=== PATIENT | female | born 1945 | race Caucasian/White ===

== ENCOUNTER → 2017-06-06 | Outpatient (CLI) | payer OTHER ==
[~2017-06-06] VITALS: Ht 170.2 cm; Wt 81.2 kg
[~2017-06-06] MED LIST: ASPIRIN EC81 M1 PO; ATORVASTATIN CA40 MG PO; CALCIUM 500 +1 EAC5 PO; FISH OIL 1,001000 M2 PO; GLUCOSAMINE HC500 MG PO; LIPITOR20 MG PO; LUTEIN20 M1 PO; VITAMIN D1000 UNI1 PO; VITAMIN E400 UNIT PO
--- NOTE | ~2017-06-06 | P ---
[facility] [place] [address] PROCEDURE REPORT Name: JESSICA NORWOOD Room #: REG [facility]#: [id number] Admission: 06/06/17 Attend Phys: Ricky Mantilla Discharge: Date of : 43 Report #: [id number] THIS REPORT FOR: //name// CC: Ricky Bateman DO DATE OF SERVICE: 06/06/2017 PROCEDURE PERFORMED: Colonoscopy with polypectomies. HISTORY OF PRESENT ILLNESS: The patient is a 71-year-old female with a history of polyps, last colonoscopy 5 years ago. She is here for a 5-year followup. She denies any symptoms. She has a family history of colon cancer in her mother. DESCRIPTION OF PROCEDURE: The risks and benefits of the procedure were explained to the patient, those risks including but not limited to bleeding, perforation, the risk of sedation. She understood these risks and gave informed consent. Sedation was given using propofol per Anesthesia. Next, a digital rectal exam was initially performed, which was normal. Next, using a standard Fujinon colonoscope, the scope was placed in the patient's anus and advanced under direct vision to the cecum. The overall prep was excellent. The cecum and ileocecal valve were normal in appearance. In the ascending colon, there were 2 polyps, one was 3 mm in size and removed by cold forceps, the larger was 5 mm in size and removed by snare cautery, otherwise normal. Transverse and descending colon were normal. In the sigmoid colon, a 5 mm sessile polyp also removed by snare cautery. Rectal mucosa was normal. On retroflexion, no abnormalities were noted. The scope was then withdrawn and the procedure terminated. The patient tolerated the procedure well. IMPRESSION: 1. Three small colonic polyps. 2. Otherwise, normal colonoscopy. RECOMMENDATIONS: 1. Await biopsy results. 2. Repeat colonoscopy in 5 years. Thank you for allowing me to participate in her care. <ELECTRONICALLY SIGNED> By: Ricky Tate MD 06/09/17 0907 0906 0921 Ricky Tate MD /nt
--- NOTE | ~2017-06-06 | S ---
[facility] [place] [address] SURGICAL PATH RPT PROCEDURE Name: DULCE MARIA NORWOOD Room #: REG [facility]#: [id number] Admission: 06/06/17 Date of : 43 Discharge: Report #: [id number] Path Case #: [id number] PATHOLOGY REPORT COLLECTION DATE: 06/06/2017 RECEIVED DATE: 06/06/2017 SUBMITTING PHYS: Dr. Ricky Tate OTHER PHYS: Dr. Anup Reece SPECIMEN(S) RECEIVED: A.Polyp at ascending colon B.Polyp at sigmoid colon * * * * * * * * * * * * FINAL DIAGNOSIS: A. Polyp, at ascending colon, endoscopic biopsy: - Sessile serrated polyp. - Negative for dysplasia or malignancy. B. Polyp, at sigmoid, endoscopic biopsy: - Hyperplastic polyp. - Negative for dysplasia. (IUV:mml; 06/09/2017) PATHOLOGIST: Ansley Andrews M.D. REPORT ELECTRONICALLY SIGNED BY: Ansley Andrews M.D. DATE/TIME: 06/09/2017 14:49 * * * * * * * * * * * * GROSS PATHOLOGY: A. Received in formalin labeled "Dulce Maria Norwood, biopsy of polyp at ascending colon" and consists of 2 muhammad polypoid tissue fragment, 0.3 and 0.7 cm. The larger is bisected. The specimen is totally submitted as A1. B. Received in formalin labeled "Dulce Maria Norwood, polyp at sigmoid" and consists of a 0.4 cm, red, polypoid tissue fragment which is entirely submitted as B1. (HARSH; 06/06/2017) CLINICAL HISTORY: History of polyps, family history of colon cancer INITIAL CPT CODE(S): A; 63931 B; 27345 Professional services performed by [facility] at [address] [address] SURGICAL PATH RPT PROCEDURE Name: NORWOODDULCE MARIA SMILEY Room #: REG CLI [facility].#: [id number] Admission: 06/06/17 Date of : 43 Discharge: Report #: [id number] Path Case #: [id number], [place] [address] Technical services performed by [facility] at [address] [place] [address], [facility] [address] [address]. [place] [address] PHONE: [phone] DIRECTOR: Edwin Dickson M.D. * * * END OF REPORT * * *
== END | disposition home or self-care (01) ==
LOC: GI 07:46
DX: Z09 Encounter for follow-up examination after completed treatment for conditions other than malignant neoplasm (principal); Z86.010 Personal history of colon polyps; K63.5 Polyp of colon; E78.00 Pure hypercholesterolemia, unspecified; F17.210 Nicotine dependence, cigarettes, uncomplicated; M85.80 Other specified disorders of bone density and structure, unspecified site; Z98.890 Other specified postprocedural states; Z80.0 Family history of malignant neoplasm of digestive organs; Z79.82 Long term (current) use of aspirin; Z79.899 Other long term (current) drug therapy
CPT/HCPCS: 62110; 62900

== ENCOUNTER → 2019-11-04 | Outpatient (CLI) | payer OTHER | LOC: SJCVCIMAG 15:20 | PROVIDERS: ATTEND Internal Medicine Cardiovascular Disease | DX: I08.2 Rheumatic disorders of both aortic and tricuspid valves (principal); R94.31 Abnormal electrocardiogram [ECG] [EKG]; E78.00 Pure hypercholesterolemia, unspecified; Z79.899 Other long term (current) drug therapy; Z87.891 Personal history of nicotine dependence; Z82.49 Family history of ischemic heart disease and other diseases of the circulatory system ==

== ENCOUNTER 2019-11-08 07:39 | Inpatient (IN) | payer OTHER ==
[2019-11-08] VITALS (7 sets, daily range): BP systolic 95–122; BP diastolic 47–64
[~2019-11-08] VITALS: Ht 170.2 cm; Wt 85.7 kg
[2019-11-08 08:53] LABS: HEMATOCRIT 43.3 % (37.0-47.0); HEMOGLOBIN 13.9 gm/dL (12.0-15.0); MCH 28.2 pg (26.0-34.0); MCHC 32.2 g/dL (28.0-37.0); MCV 87.7 fL (80.0-100.0); RBC 4.94 mil/uL (4.20-5.00); RDW 15.4 % (10.5-14.5); WBC 5.2 thou/uL (4.0-11.0)
[2019-11-08 09:03] LABS: CALCIUM 8.8 mg/dL (8.5-10.1); CREATININE 0.9 mg/dL (0.6-1.0); POTASSIUM 4.2 mmol/L (3.5-5.1)
--- NOTE | 2019-11-08 10:48 | EKG ---
[facility] [place] [address] ELECTROCARDIOGRAM REPORT Name: JESSICA NORWOOD Room #: REG [facility].#: [id number] Admission: 11/08/19 Attend Phys: Laci Stoddard MD, Discharge: Date of : 43 Report #: [id number] THIS REPORT FOR: cc: Anup Reece,Kashif Springer MD ~ THIS REPORT FOR: //name// [facility] Test Date: 2019-11-08 Test Time: 08:44:41 Pat Name: JESSICA NORWOOD Department: Room: Gender: F Last Remodeler Repairer: [facility] : 1945 Requested By: Laci Stoddard Order Number: [id number] MD: Kashif Sesay Measurements Intervals [place] Rate: 53 P: 2 MD: 177 QRS: -14 QRSD: 94 T: 9 QT: 455 QTc: 428 Interpretive Statements Sinus rhythm Borderline T abnormalities, anterior leads No previous ECG available for comparison Electronically Signed On 11-08-2019 10:48:20 CDT by Kashif Sesay [email or web address] <ELECTRONICALLY SIGNED> By: Kashif Sesay MD 11/08/19 1048 0844 0844 Kashif Sesay MD /EPI
[2019-11-08 15:54] LABS: ABSOLUTE NEUTROPHILS 3.4 thou/uL (1.4-8.2); BASOPHILS 0.4 % (0.0-2.0); EOSINOPHILS 1.2 % (0.0-3.0); HEMATOCRIT 41.6 % (37.0-47.0); HEMOGLOBIN 13.3 gm/dL (12.0-15.0); LYMPHOCYTES 26.9 % (24.0-44.0); MCH 28.1 pg (26.0-34.0); MCHC 31.9 g/dL (28.0-37.0); MONOCYTES 8.4 % (1.0-8.0); PLATELET COUNT 192 thou/uL (150-400); POLYS 63.1 % (36.0-66.0); RBC 4.74 mil/uL (4.20-5.00); RDW 15.5 % (10.5-14.5); WBC 5.4 thou/uL (4.0-11.0)
[2019-11-08 16:02] LABS: CALCIUM 8.2 mg/dL (8.5-10.1); CREATININE 0.8 mg/dL (0.6-1.0); POTASSIUM 4.1 mmol/L (3.5-5.1)
[2019-11-08 16:08] LABS: ALBUMIN 3.2 g/dL (3.4-5.0); TOTAL BILIRUBIN 0.5 mg/dL (0.2-1.0); TOTAL PROTEIN 6.1 g/dL (6.4-8.2)
[2019-11-08 16:10] LABS: APTT 29.4 Seconds (24.5-32.8); PROTIME 10.7 Seconds (9.3-11.4)
[2019-11-08 17:02] LABS: URINE BILIRUBIN NEGATIVE (Negative); URINE BLOOD NEGATIVE (Negative); URINE CLARITY CLEAR; URINE COLOR YELLOW; URINE GLUCOSE-RANDOM* NEGATIVE (Negative); URINE KETONES NEGATIVE (Negative); URINE LEUKOCYTES-REFLEX NEGATIVE (Negative); URINE NITRITE-REFLEX NEGATIVE (Negative); URINE PROTEIN (DIPSTICK) NEGATIVE (Negative)
--- NOTE | 2019-11-08 17:40 | NUR ---
PT ADMITED FROM MORTGAGE CLERK. ADMISSION HX AND ASSESSMENT COMPLETED. VSS. DENIED HAVING PAIN OR DISCOMFORT. RIGHT GROIN INCISION C/D/I. NO HEMATOMA NOTED. NPO AFTER MIDNIGHT FOR CABG IN AM. PRE OP INSTRUCTIONS GIVEN TO PT. PT VERBERLISED UNDERSTANDING. NO CARDIAC DISTRESS NOTED. WILL CONTINUE TO MONITOR.
--- NOTE | 2019-11-08 17:42 | CATHLAB ---
[facility] [place] [address] INVASIVE PROCEDURE REPORT Name: JESSICA NORWOOD Room #: 201-P [facility] M.R.#: [id number] Admission: 11/08/19 Attend Phys: Laci Stoddard MD, Discharge: Date of : 44 Report #: [id number] THIS REPORT FOR: cc: Anup Reece James A. DO Mancuso, Gerald M. MD [facility] ~ APPROVED REPORT Study performed: 11/08/2019 10:44:29 Patient Details Patient Status: Out-Patient Room #: The patient is a 74 year-old female Event Personnel Laci Stoddard Branding Specialist, Pankaj Anguiano RN RN, Teresita Acevedo RTR Monitor, Leela López RT(R)() Glen Hintno Tony RN powerhouse operator Performed Art Access - R femoral artery* Left Heart Cath w/or w/o Coronaries [id number] [facility] Hemostasis w/ Mynx 75664 Initial Mod Sed Same Phys/QHP Gr5y 062445 90914 Mod Sed Same Phys/QHP Ea 687143 Aortogram Abdominal Peripheral Angio 416004 Procedure Narrative The Right Groin^ was infiltrated with 1% Lidocaine subcutaneous anesthesia. A PINNACLE 6FR Sheath #[id number] sheath was inserted into the RFA^. Coronary angiography was performed using coronary diagnostic catheters. The right coronary system was accessed and visualized with a JR4 catheter. The left coronary system was accessed and visualized with a JL4 catheter. The left ventricle was accessed and visualized with a PIGTAIL catheter. Left ventriculogram was performed in 30 degree projection. An aortogram of the abdominal aorta was performed. Closure device was deployed with a Fr 6 FR MYNX. The patient tolerated the procedure well and there were no complications associated with the procedure. There was no hematoma. Intraoperative Conscious Sedation Sedation start time: 11:55 Case end Time: 12:31 Fentanyl 50 mcg Versed 2 mg [facility] [address] [place] [address] INVASIVE PROCEDURE REPORT Name: JESSICA NORWOOD Room #: 201-P [facility]#: [id number] Admission: 11/08/19 Attend Phys: Laci Stoddard, Discharge: Date of : 43 Report #: [id number] Fluoro Time: 1.26 minutes Dose: DAP 3312.60 cGycm2 401 mGy Contrast Type and Amount: Omnipaque 135 ml Hemodynamics The aortic pressure is 115/96 mmHg with a mean of 105 mmHg. The left ventricular pressure is 130/12 mmHg with a mean of mmHg. The left ventricular end diastolic pressure is 15 mmHg. Conclusion 1. Normal left ventricular size and systolic function EF 55 to 60% #2 abdominal aorta reveals mild plaquing small infrarenal aneurysm will evaluate noninvasively. Mildly dilated right common iliac no high-grade stenosis or significant aneurysm. #3 there is an ostial left main lesion of 30 to 40% and a distal tapered left main of 50% giving rise to LAD and circumflex. #4 LAD proximal calcification complex proximal mid lesion at the diagonal takeoff at least 70% well-preserved distal vessel around the apex. #5 circumflex OM nondominant mild to moderate in distribution with a subtotal proximal lesion 99% with preserved flow #6 the dominant right coronary artery high-grade subtotaled area in the proximal mid mid distal segment. 90 to 95% with a preserved distal half of the RCA and PDA LANDON. Recommendations and plan: Aggressive medical therapy. Patient will be admitted with stable but accelerating angina. These lesions and severe nature of all 3 vessels including left main involvement would require revascularization by bypass surgery. Patient is pain-free upon transfer to CCU. CT surgery consultation. <ELECTRONICALLY SIGNED> By: Laci Stoddard MD, FACC 11/08/191741 41 41 Laci Stoddard MD, FACC /INF
[2019-11-09] VITALS (16 sets, daily range): BP systolic 97–128; BP diastolic 36–66
[2019-11-09 02:06] LABS: GLYCOHEMOGLOBIN (HGB A1C) 5.8 % (4.8-5.6)
--- NOTE | 2019-11-09 08:13 | NUR ---
ASSUME CARE 1900. PT/VITALS STABLE. NO DISTRESS NOTED. DENIES ANYT CHEST PAIN. UP AD JUNE. SR ON MONITOR. ASSESSMENT CHARTED. PLAN IS CABG IN AM. PREP FOR SURGERY TODAY. PT COMPLYING WELL. WILL CONTINUE TO MONITOR AND FOLLOW WITH POC
[2019-11-09 12:32] LABS: HEMATOCRIT 29.1 % (37.0-47.0); MCH 28.8 pg (26.0-34.0); MCHC 32.8 g/dL (28.0-37.0); MCV 87.7 fL (80.0-100.0); RBC 3.31 mil/uL (4.20-5.00); RDW 15.3 % (10.5-14.5); WBC 10.3 thou/uL (4.0-11.0)
[2019-11-09 12:35] LABS: HEMOGLOBIN 9.5 gm/dL (12.0-15.0)
[2019-11-09 12:52] LABS: APTT 31.6 Seconds (24.5-32.8); PROTIME 16.7 Seconds (9.3-11.4)
[2019-11-09 12:54] LABS: INR 1.7
[2019-11-09 13:51] LABS: POC BE 2 mmol/L (-2.0 to +3.0); POC CA IONIZED 4.2 mg/dL (4.5-5.3); POC GLUCOSE 137 mg/dL (70-99); POC HCO3 26.2 mmol/L (22.0-26.0); POC HEMOGLOBIN 9.9 g/dL (12.0-15.0); POC SODIUM 137 mmol/L (136-145); POC pCO2 37.5 mmHg (35.0-45.0); POC pH 7.452 (7.360-7.450)
[2019-11-09 13:51] LABS: POC BE 3 mmol/L (-2.0 to +3.0); POC CA IONIZED 4.9 mg/dL (4.5-5.3); POC GLUCOSE 98 mg/dL (70-99); POC HCO3 27.1 mmol/L (22.0-26.0); POC HEMOGLOBIN 13.3 g/dL (12.0-15.0); POC POTASSIUM 4.2 mmol/L (3.5-5.1); POC SODIUM 140 mmol/L (136-145); POC pCO2 40.2 mmHg (35.0-45.0); POC pH 7.437 (7.360-7.450)
[2019-11-09 13:51] LABS: POC BE 2 mmol/L (-2.0 to +3.0); POC CA IONIZED 4.5 mg/dL (4.5-5.3); POC GLUCOSE 162 mg/dL (70-99); POC HCO3 26.7 mmol/L (22.0-26.0); POC HEMOGLOBIN 9.9 g/dL (12.0-15.0); POC POTASSIUM 4.7 mmol/L (3.5-5.1); POC SODIUM 138 mmol/L (136-145); POC pCO2 39.9 mmHg (35.0-45.0); POC pH 7.434 (7.360-7.450)
[2019-11-09 13:51] LABS: POC BE 1 mmol/L (-2.0 to +3.0); POC CA IONIZED 4.4 mg/dL (4.5-5.3); POC GLUCOSE 168 mg/dL (70-99); POC HCO3 25.8 mmol/L (22.0-26.0); POC HEMOGLOBIN 9.2 g/dL (12.0-15.0); POC POTASSIUM 4.7 mmol/L (3.5-5.1); POC SODIUM 137 mmol/L (136-145); POC pH 7.406 (7.360-7.450)
[2019-11-09 13:51] LABS: POC BE 2 mmol/L (-2.0 to +3.0); POC CA IONIZED 4.7 mg/dL (4.5-5.3); POC GLUCOSE 125 mg/dL (70-99); POC HCO3 26.7 mmol/L (22.0-26.0); POC HEMOGLOBIN 12.6 g/dL (12.0-15.0); POC POTASSIUM 4.4 mmol/L (3.5-5.1); POC SODIUM 139 mmol/L (136-145); POC pCO2 41.5 mmHg (35.0-45.0); POC pH 7.417 (7.360-7.450)
[2019-11-09 13:51] LABS: POC BE -1 mmol/L (-2.0 to +3.0); POC CA IONIZED 5.6 mg/dL (4.5-5.3); POC GLUCOSE 139 mg/dL (70-99); POC HCO3 23.3 mmol/L (22.0-26.0); POC HEMOGLOBIN 9.2 g/dL (12.0-15.0); POC POTASSIUM 3.9 mmol/L (3.5-5.1); POC SODIUM 140 mmol/L (136-145); POC pCO2 35.3 mmHg (35.0-45.0); POC pH 7.428 (7.360-7.450)
[2019-11-09 13:52] LABS: POC BE -2 mmol/L (-2.0 to +3.0); POC GLUCOSE 118 mg/dL (70-99); POC HCO3 22.2 mmol/L (22.0-26.0); POC HEMOGLOBIN 10.9 g/dL (12.0-15.0); POC POTASSIUM 3.8 mmol/L (3.5-5.1); POC SODIUM 141 mmol/L (136-145); POC pCO2 34.1 mmHg (35.0-45.0); POC pH 7.421 (7.360-7.450)
[2019-11-09 13:52] LABS: POC BE 1 mmol/L (-2.0 to +3.0); POC CA IONIZED 4.4 mg/dL (4.5-5.3); POC GLUCOSE 165 mg/dL (70-99); POC HEMOGLOBIN 9.5 g/dL (12.0-15.0); POC POTASSIUM 4.7 mmol/L (3.5-5.1); POC SODIUM 137 mmol/L (136-145); POC pCO2 42.1 mmHg (35.0-45.0); POC pH 7.399 (7.360-7.450)
--- NOTE | 2019-11-09 14:00 | NUR ---
PT RECIEVED FROM SURGERY ACC BY aNES AND OR NURSES. DR Cortes HERE. PT IS ONLY ON PROPOFOL, ALL HEMODYNAMIC PARAMETERS WNL. PLACED ON THE MONITOR NSR. ETT INTACT TO VENT. OGT TO LIS. MEDS AND PCT INTACT WITH MINIMAL DRAINAGE. LITTLE FRAINING CLEAR URINE, PLACE ON HEAT SOURCE. WILL CONT TO MONITOR.
[2019-11-09 14:38] LABS: HEMATOCRIT 36.6 % (37.0-47.0); MCH 28.9 pg (26.0-34.0); MCHC 33.1 g/dL (28.0-37.0); MCV 87.4 fL (80.0-100.0); RBC 4.18 mil/uL (4.20-5.00); RDW 15.6 % (10.5-14.5)
[2019-11-09 14:43] LABS: HEMOGLOBIN 12.1 gm/dL (12.0-15.0)
[2019-11-09 14:48] LABS: HCO3 19.1 mmol/L (22.0-26.0); PCO2 29.6 mmHg (35.0-45.0); PO2 136.9 mmHg (80.0-100.0); pH 7.428 (7.360-7.450); sO2 98.8 % (92.0-98.0)
[2019-11-09 14:56] LABS: APTT 27.5 Seconds (24.5-32.8); INR 1.2; PROTIME 11.9 Seconds (9.3-11.4)
[2019-11-09 14:57] LABS: CALCIUM 8.1 mg/dL (8.5-10.1); CREATININE 0.7 mg/dL (0.6-1.0); MAGNESIUM 2.4 mg/dL (1.8-2.4)
--- NOTE | 2019-11-09 15:00 | NUR ---
PROPOFOL OFF, ALL HEMODYNAMIC PARAMETERS LOOK GOOD.
--- NOTE | 2019-11-09 16:00 | NUR ---
ASSESSMENTS COMPLETED. PT HAS BEEN WAKING UP GRADUALLY BUT IS NOT FOLLOWING COMMANDS ENOUGH, I DID HAVE RT HERE TO TRY TO WEAN HER BUT SHE IS JUST TOO SLEEPY, HOB UP 30 DEGREES, ENCOURAGED PT TO OPEN HER EYES AND LOOK AROUND , PROCEDURE FOR THE WEANING PROCESS EXPLAINED SHE NODS YES BUT FALLS ASLEEP. WILL CONT TO MONITOR.
--- NOTE | 2019-11-09 17:00 | NUR ---
CALLED AND WANTED TO SEE HIS FOR A SHORT TIME. HERE AND UPDATE GIVEN.
--- NOTE | 2019-11-09 17:46 | H ---
[facility] [place] [address] HISTORY AND PHYSICAL Name: JESSICA NORWOOD Room #: 251-P ADM IN M.R.#: [id number] Admission: 11/08/19 Attend Phys: Laci Stoddard MD, Discharge: Date of : 43 Report #: [id number] THIS REPORT FOR: cc: Anup Reece,Laci Lazar MD [facility] ~ CC: Laci Reece DATE OF SERVICE: 11/08/2019 HISTORY OF PRESENT ILLNESS: The patient is a 74-year-old female followed by Dr. Reece and Sangeeta Snyder NP. She is admitted for what sounds like accelerating unstable anginal symptoms. She was seen on the in, I believe, this [facility] Emergency Room. She was ruled out and was subsequently scheduled to be seen here in a couple of weeks at [facility]. She was seen last week in the office with an abnormal stress echo. She has had some acceleration of her symptoms over the weekend despite Bystolic in addition of a beta crystal, she has been on a statin. Marked decrease in exercise tolerance. Subsequently, catheterization lab reveals left main of at least 50%, both ostial and distally, a subtotal circumflex and a moderate disease in the proximal LAD diagonal system, which is heavily calcified ,dominant right which has a long complex lesions of 90 and 95% and calcification with also good preserved distal vessel. She is pain free in the cath lab radiology technician, but these are subtotal lesions in the right and the circumflex, going to admit her for CT surgical consultation. CURRENT MEDICATIONS: Have been recently added; Bystolic, atorvastatin 40; baby aspirin and Pepcid. PAST MEDICAL HISTORY: Positive for the elevated lipids, hypertension, coronary calcium score elevated, reflux, DJD. PAST SURGICAL HISTORY: Tonsillectomy. SOCIAL HISTORY: She is . She was a prior smoker. No alcohol use. No illicit drug use. Two cups of coffee a day. REVIEW OF SYSTEMS: Essentially negative except for stated above, increasing fatigue. ALLERGIES: No known drug allergies. FAMILY HISTORY: Both father and brother had heart attack in their early 60s. PHYSICAL EXAMINATION: GENERAL: She is pleasant, alert. [facility] [address] [place] [address] HISTORY AND PHYSICAL Name: JESSICA NORWOOD Room #: 251-P [facility] IN M.R.#: [id number] Admission: 11/08/19 Attend Phys: Laci Stoddard MD, Discharge: Date of : 43 Report #: [id number] VITAL SIGNS: Pulse is 60s, blood pressure 136/80. HEENT: Eyes reveal xanthelasmas. Pharynx is clear. NECK: Shows preserved upstrokes without JVD or bruits. LUNGS: Clear. CARDIOVASCULAR: Regular rate and rhythm, S1, S2 distant. ABDOMEN: Soft. No HSM or abdominal bruit. EXTREMITIES: Reveal no edema. Distal pulses were intact. NEUROLOGIC: Nonfocal. SKIN: Warm and dry without xanthoma or ulcer. MUSCULOSKELETAL: No gross joint deformity. ASSESSMENT: 1. Coronary artery disease with high grade 3-vessel disease as described above with accelerating angina. 2. Hypertension. 3. Hypercholesterolemia. 4. Reflux. RECOMMENDATIONS AND PLAN: We will obtain MRSA and COVID swabs, carotid Doppler, CV surgical consultation. We would like to proceed for revascularization by bypass in the a.m. No recurrent chest pain at rest here. We will avoid anticoagulants currently. Risks, benefits, alternatives discussed with the patient and her . Dr. Pete will also be having a further discussion regarding bypass with them. <ELECTRONICALLY SIGNED> By: Laci Stoddard MD, FACC 11/09/19 1746 1227 1256 Laci Stoddard MD, FACC /nt
--- NOTE | 2019-11-09 18:00 | NUR ---
REPORT GIVEN TO ONCOMING RN, WE HAVE TRIED TO WEAN THE PATIENT X3 AND SHE HAS NOT FIT THE PARAMETERS TO EXTUBATE. WILL CONT TO MONITOR. WILL TRY SOME PAIN MEDICATION.
[2019-11-09 18:28] LABS: CALCIUM 8.2 mg/dL (8.5-10.1); POTASSIUM 3.8 mmol/L (3.5-5.1)
[2019-11-09 20:46] LABS: BE(vivo) -7.1 mmol/L (-2 to +3); HCO3 17.9 mmol/L (22.0-26.0); PCO2 34.9 mmHg (35.0-45.0); PO2 100.8 mmHg (80.0-100.0); sO2 97.3 % (92.0-98.0)
[2019-11-09 20:47] LABS: pH 7.329 (7.360-7.450)
[2019-11-09 22:12] LABS: BE(vivo) -8.5 mmol/L (-2 to +3); HCO3 17.4 mmol/L (22.0-26.0); PCO2 37.5 mmHg (35.0-45.0); PO2 118.7 mmHg (80.0-100.0); sO2 97.9 % (92.0-98.0)
[2019-11-09 22:13] LABS: pH 7.285 (7.360-7.450)
[2019-11-10] VITALS (11 sets, daily range): BP systolic 95–123; BP diastolic 46–59
[2019-11-10 05:58] LABS: HEMATOCRIT 37.7 % (37.0-47.0); HEMOGLOBIN 12.1 gm/dL (12.0-15.0); MCH 28.5 pg (26.0-34.0); MCHC 32.1 g/dL (28.0-37.0); MCV 88.8 fL (80.0-100.0); RBC 4.24 mil/uL (4.20-5.00); RDW 15.9 % (10.5-14.5); WBC 12.8 thou/uL (4.0-11.0)
[2019-11-10 06:12] LABS: CALCIUM 8.4 mg/dL (8.5-10.1); CREATININE 1.2 mg/dL (0.6-1.0); MAGNESIUM 2.6 mg/dL (1.8-2.4); POTASSIUM 3.9 mmol/L (3.5-5.1)
--- NOTE | 2019-11-10 07:59 | EKG ---
[facility] [place] [address] ELECTROCARDIOGRAM REPORT Name: JESSICA NORWOOD Room #: 251-P ADM IN M.R.#: [id number] Admission: 11/08/19 Attend Phys: Laci Stoddard MD, Discharge: Date of : 43 Report #: [id number] THIS REPORT FOR: cc: Anup Reece James A. DO Lundgren, Craig H. MD [facility] ~ THIS REPORT FOR: //name// [facility] Test Date: 2019-11-09 Test Time: 16:19:35 Pat Name: JESSICA NORWOOD Department: Room: [facility] Gender: F Keno Writer: Rosalva DUMONT : 1945 Requested By: Pawel Chavez Order Number: [id number] MD: Sb Thakkar Measurements Intervals [place] Rate: 89 P: 42 UT: 157 QRS: 11 QRSD: 91 T: 39 QT: 396 QTc: 482 Interpretive Statements Sinus rhythm Nonspecific ST segment abnormality Compared to ECG 11/08/2019 08:44:41 T-wave abnormality no longer present Electronically Signed On 11-10-2019 7:58:55 CDT by Sb Thakkar [email or web address] <ELECTRONICALLY SIGNED> By: Sb Thakkar MD, FAC 11/10/19 0758 1619 1619 Sb Thakkar MD, FAC /EPI
--- NOTE | 2019-11-10 08:44 | NUR ---
Received consult for diet education however pt is on a regular diet, no restrictions. Available as needed
--- NOTE | 2019-11-10 13:37 | NUR ---
Case opened to follow for dc planning. Pt is currently in the ICU s/p CABG x4 and today is pod#1. She is extubated and has been seen by PT/OT today. Bath Solution Maker visited with the pt and spouse via speaker phone. CM role introduced. The pt was indep, active, working fulltime and driving prior to admission. She lives with her spouse in a two story home with 3 steps to enter. She has a flight up to the master bedroom and full bath. They are planning for her to stay on the main level upon dc home and only go upstairs to shower. There is a half bath on the main level. 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 She does not have any dme. They are open to outpt cardiac rehab or HH pending therapy and CTS recommendations. Will follow along should hh be indicated at dc and a listing will be provided.
--- NOTE | 2019-11-10 13:50 | EKG ---
[facility] [place] [address] ELECTROCARDIOGRAM REPORT Name: JESSICA NORWOOD Room #: 251-P ADM IN M.R.#: [id number] Admission: 11/08/19 Attend Phys: Laci Stoddard MD, Discharge: Date of : 43 Report #: [id number] THIS REPORT FOR: cc: Anup Reece James A. DO Couchonnal, Luis F. MD ~ THIS REPORT FOR: //name// [facility] Test Date: 2019-11-10 Test Time: 07:13:25 Pat Name: JESSICA NORWOOD Department: Room: 251 P Gender: F Repeater Chief: CHEPE : 1945 Requested By: Pawel Chavez Order Number: [id number] MD: Kashif Sesay Measurements Intervals [place] Rate: 84 P: 5 WI: 150 QRS: 18 QRSD: 92 T: -19 QT: 448 QTc: 530 Interpretive Statements Sinus rhythm Borderline T wave abnormalities Compared to ECG 11/09/2019 16:19:35 Electronically Signed On 11-10-2019 13:49:56 CDT by Kashif Sesay [email or web address] <ELECTRONICALLY SIGNED> By: Kashif Sesay MD 11/10/19 1349 2 2 Kashif Sesay MD /EPI
--- NOTE | 2019-11-10 16:00 | NUR ---
MS CHEST TUBES DCD. PACER WIRES WRAPPED.
[2019-11-11 08:14] VITALS: BP 111/50
[2019-11-11 10:30] VITALS: BP 102/51
[2019-11-11 11:02] VITALS: BP 102/51
[2019-11-11 15:39] VITALS: BP 122/58
[2019-11-11 16:10] VITALS: BP 122/58
--- NOTE | 2019-11-11 18:56 | NUR ---
PT CARE ASSUMED AT 1055. ASSESSMENT CHARTED. MEDICATIUON CHARTED. CHEST TUBES REMOVED; PT AT BED REST UNTIL 1600. SIDNEY. CABG X4. PACE WIRES STILL IN PLACE. BETTINA DRESSING ON STERNUM.
[2019-11-11 19:38] VITALS: BP 123/67
[2019-11-12 00:14] VITALS: BP 114/62
[2019-11-12 03:33] VITALS: BP 125/64
--- NOTE | 2019-11-12 04:03 | NUR ---
Assumed pt care at 1900. Pt is alert and oriented. No sign of distress noted in pt. Pt is stable. Fall precaution in place. Assessment completed and documented. Incision site intact. Encourage the use of IS with patient. Scheduled meds administered to pt. Pain tolerable. No acute event overnight.Continue to monitor pt. No further needs at this time.
[2019-11-12 07:30] VITALS: BP 120/80
[2019-11-12] MEDS ORDERED: METOPROLOL SUCC25 M1 PO (07:39)
[2019-11-12] MEDS ORDERED: PACERONE 200 M200 M1 PO (07:39)
[2019-11-12 09:12] LABS: HEMATOCRIT 34.4 % (37.0-47.0); HEMOGLOBIN 11.3 gm/dL (12.0-15.0); MCH 28.7 pg (26.0-34.0); MCHC 32.7 g/dL (28.0-37.0); MCV 87.5 fL (80.0-100.0); RBC 3.93 mil/uL (4.20-5.00); RDW 16.3 % (10.5-14.5)
[2019-11-12 09:31] LABS: CALCIUM 8.5 mg/dL (8.5-10.1); CREATININE 0.7 mg/dL (0.6-1.0); POTASSIUM 4.1 mmol/L (3.5-5.1)
[2019-11-12 11:46] VITALS: BP 97/50
--- NOTE | 2019-11-12 12:41 | O ---
[facility] [place] [address] OPERATIVE REPORT Name: JESSICA NORWOOD Room #: 215-P ADM IN M.R.#: [id number] Admission: 11/08/19 Attend Phys: Laci Stoddard MD, Discharge: Date of : 43 Report #: [id number] THIS REPORT FOR: cc: Anup Reece,Isaac Avery MD ~ CC: Laci Reece DATE OF SERVICE: 11/09/2019 PREOPERATIVE DIAGNOSIS: Coronary artery disease. POSTOPERATIVE DIAGNOSIS: Coronary artery disease. OPERATION: Coronary artery bypass x 4 including left internal mammary artery to left anterior descending artery, saphenous vein to diagonal and marginal and saphenous vein to right coronary and endoscopic harvest, left greater saphenous vein. SURGEON: Isaac Pete MD. COSMETOLOGIST: ANDREINA Juarez. ANESTHESIA: General. INDICATIONS: The patient is a 74-year-old with angina. The patient presents with progressive shortness of breath and exertional chest pain. Cardiac catheterization demonstrates 99% right coronary and 99% circumflex lesions. Left main has a 50% stenosis and LAD has a 70% lesion. Left ventricular function was satisfactory. FINDINGS AND TECHNIQUE: After general anesthesia was established, saphenous vein was harvested using an endoscopic approach and prepared for use as a conduit. Exposure was obtained through median sternotomy. Left internal mammary artery was harvested from chest wall. Pericardial well was made. Cannulation sutures were placed. Heparin was given. Aorta was cannulated. Right atrium was cannulated. Cardioplegia needle was positioned in the aortic root. Retrograde cardioplegic catheter was placed in coronary sinus. Cardiopulmonary bypass was established. The aorta was cross clamped. Antegrade and retrograde cardioplegia were given. Ice was poured into pericardial well. The heart was stopped. During electromechanical arrest, the distal anastomoses were performed and [facility] [address] [place] [address] OPERATIVE REPORT Name: JESSICA NORWOOD Room #: 215-P [facility] IN M.R.#: [id number] Admission: 11/08/19 Attend Phys: Laci Stoddard MD, Discharge: Date of : 43 Report #: [id number] end-to-side anastomosis was made between the vein and the right coronary. Cold cardioplegia was given. A separate segment of vein was sewn in end-to-side fashion to the circumflex marginal. Cold cardioplegia was given. The same segment of vein was sewn in [id number] fashion to the diagonal artery. Diagonal was a 1.2 mm vessel. Cold cardioplegia was given. Left internal mammary artery was sewn in end-to-side fashion to left anterior descending artery. The LAD was intramyocardial and we performed the anastomosis where it emerged from its deep position. It was a relatively small vessel and was quite distal and we used most of the MORRIS. The MORRIS was small at this point, but it was a good match for the LAD. The anastomosis was checked with the temperature technique and also with the Doppler to confirm flow. Cold cardioplegia was given. Two proximal anastomoses were performed. When these were complete, warm retrograde cardioplegia was given followed by warm continuous blood to the coronary sinus. When this infusion was complete, the crossclamp was removed. De-airing maneuvers were performed. The anastomoses were inspected and found to be satisfactory. As the patient warmed, nice cardiac activity resumed. Chest tubes and pacing wires were placed. A marker was placed around the proximal anastomoses. When the patient was warmed, she was weaned from cardiopulmonary bypass. Venous cannula was removed. Protamine was given, the aortic cannula was removed. Flows were measured in the bypass grafts. When hemostasis was satisfactory, chest was irrigated with antibiotic solution and closed in the usual fashion. The patient was taken to the Intensive Care Unit in good condition having tolerated the procedure well. All counts reported as correct. <ELECTRONICALLY SIGNED> By: Isaac Pete MD 11/12/19 1241 1539 1610 Isaac Pete MD /nt
--- NOTE | 2019-11-12 12:41 | HC ---
[facility] [place] [address] CONSULTATION Name: JESSICA NORWOOD Room #: 215-P ADM IN M.R.#: [id number] Admission: 11/08/19 Attend Phys: Laci Stoddard MD, Discharge: Date of : 43 Report #: [id number] THIS REPORT FOR: cc: Anup Reece,Isaac Avery MD ~ CC: Laci Reece DATE OF SERVICE: 11/08/2019 HISTORY OF PRESENT ILLNESS: We were asked by Dr. Stoddard to see the patient. The patient is a 74-year-old with coronary artery disease. The patient presents with a several month history of angina. This has seemed to get worse over time, but it has always been related to exercise. The patient denies rest angina. Patient states that she has chest pain, right arm pain, and shortness of breath with ____ low levels of exertion. Cardiac catheterization today demonstrates 3-vessel coronary artery disease including 50% left main, 70% LAD, 90 plus percent circumflex and 90 plus percent right coronary stenosis. Left ventricular function is satisfactory. PAST HISTORY: Elevated cholesterol. The patient denies such problems as diabetes and hypertension. 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 She has smoked on and off for many years. FAMILY HISTORY: Not pertinent. ALLERGIES: None known. MEDICATIONS AT HOME: Atorvastatin, Pepcid, nitro, aspirin, Bystolic. REVIEW OF SYSTEMS: GENERAL: Denies changes in weight. EYES: No vision changes. ENT: No hearing loss, sinus problems, headache. CARDIAC: As mentioned, exertional angina, class 3, moving to class 2. RESPIRATORY: Shortness of breath with exertion. Denies cough. GASTROINTESTINAL: Has gastroesophageal reflux and claims to burp 30 times a day. No blood. No nausea, vomiting, constipation, diarrhea. GENITOURINARY: No burning, urgency, frequency, blood. MUSCULOSKELETAL: Denies bone and joint pain. SKIN: No rash or infection. NEUROLOGIC: No motor or sensory dysfunction. [facility] [address] [place] [address] CONSULTATION Name: JESSICA NORWOOD SMILEY Room #: 215-P [facility] IN M.R.#: [id number] Admission: 11/08/19 Attend Phys: Laci Stoddard MD, Discharge: Date of : 43 Report #: [id number] HEMATOLOGIC: No bruisability or bleeding. ENDOCRINE: No goiter or tremor. PHYSICAL EXAMINATION: CONSTITUTIONAL: The patient is lying in bed, appears comfortable. VITAL SIGNS: Heart rate 70, blood pressure 109/60, respiratory rate 16. HEENT: No scleral icterus, no arcus. NECK: No mass, no bruit. CHEST: Clear to auscultation. HEART: Rhythm regular, no murmur. ABDOMEN: Soft. EXTREMITIES: No clubbing, cyanosis or edema. Strong dorsalis pedis pulses bilaterally (2+). No obvious saphenous vein problems. MUSCULOSKELETAL: No obvious bone or joint deformity or asymmetry. NEUROLOGIC: No motor or sensory dysfunction, although the patient is in bed post-cath. PSYCHIATRIC: Shows insight into problem and is a pleasant woman. ASSESSMENT: The patient has severe 3-vessel coronary artery disease with less severe left main stenosis in the face of good ventricular function. We have recommended coronary artery bypass surgery. Risks and details of this were discussed. Options and alternatives were reviewed. The patient understands all of this and wishes to proceed. We will try to arrange for surgery for tomorrow. Thank you for the consult. <ELECTRONICALLY SIGNED> By: Isaac Pete MD 11/12/19 1241 1312 [id number] Isaac Pete MD /nt
--- NOTE | 2019-11-12 13:45 | NUR ---
Bedside visit made with pt/spouse. Cardiac rehab just saw the pt and she did well walking in the hallway. Pros and cons of HH discussed especially with Covid Crisis. Will see how she does the next day or two. Spouse is very supportive and pt can stay on the main level. Should she need HH at dc options discussed. [facility] or [facility] can accept her ins plan and they would be agreeable to either. They are hoping she will not need it and they can eliminate virus explosure.
--- NOTE | 2019-11-12 15:27 | NUR ---
PT WITH POOR APPETITE, REQUESTING ENSURE WITH ALL MEALS.
[2019-11-12 16:30] VITALS: BP 105/54
--- NOTE | 2019-11-12 18:30 | NUR ---
PT UP IN CHAIR THIS EVENING.
[2019-11-12 20:15] VITALS: BP 114/50
[2019-11-13 04:00] VITALS: BP 105/61
--- NOTE | 2019-11-13 05:19 | NUR ---
Assumed pt care at 1900. Pt is alert and oriented with no sign of distress noted in pt. Denies any pain. Pt is ambulatory. Assesment completed and documented. Scheduled meds administered. Pt is consipated and haven't had a bowel movement since 11/08/19. Encouraged ambulation. No acute events overnight. No further needs at this time.
[2019-11-13 06:40] LABS: HEMATOCRIT 31.9 % (37.0-47.0); HEMOGLOBIN 10.5 gm/dL (12.0-15.0); MCH 29.1 pg (26.0-34.0); MCV 88.2 fL (80.0-100.0); RBC 3.61 mil/uL (4.20-5.00); RDW 16.3 % (10.5-14.5); WBC 8.1 thou/uL (4.0-11.0)
[2019-11-13 07:01] LABS: CALCIUM 8.4 mg/dL (8.5-10.1); CREATININE 0.7 mg/dL (0.6-1.0)
[2019-11-13 07:45] VITALS: BP 116/61
--- NOTE | 2019-11-13 10:55 | EKG ---
[facility] [place] [address] ELECTROCARDIOGRAM REPORT Name: JESSICA NORWOOD Room #: 215-P ADM IN M.R.#: [id number] Admission: 11/08/19 Attend Phys: Laci Stoddard MD, Discharge: Date of : 43 Report #: [id number] THIS REPORT FOR: cc: Anup Reece James A. DO Lundgren, Craig H. 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
[2019-11-13 11:30] VITALS: BP 101/57
[2019-11-13 17:00] VITALS: BP 121/43
--- NOTE | 2019-11-13 17:19 | NUR ---
ASSESSMENT CHARTED. PT ALERT AND ORIENTED. HAD LOW BP THIS SHIFT. DR. PEREZ AWARE. SCHEDULED COREG HELD FOR LOW BP. PER DR. PEERZ PT SHOULD BE ON STRICT BEDREST. AFIB ON TELE. WILL CONTINUE TO MONITOR.
--- NOTE | 2019-11-13 17:29 | NUR ---
ASSESSMENT CHARTED. PT ALERT AND ORIENTED. VSS. DENIED HAVING PAIN OR DISCOMFORT. HAD A SHOWER THIS AM. BETTINA DRESSING CHANGED. NSR ON TELE. UP IN THE CHAIR THIS SHIFT. AMBULATED X3. AT THE BEDSIDE. NO CONCERNS AT THIS TIME. WILL CONTINUE TO MONITOR.
[2019-11-13 20:50] VITALS: BP 113/59
[2019-11-14 04:30] VITALS: BP 117/39
--- NOTE | 2019-11-14 05:17 | NUR ---
Assumed pt care at 1900. Pt is alert and oriented. No sign of distress noted in pt.Denies any pain. Pt is stable. Dressing over incision site. Assessment completed and documented. Scheduled meds administered to pt. No acute events over night. Continue to monitor. No further needs at this time.
[2019-11-14 08:03] VITALS: BP 104/48
[2019-11-14] MEDS ORDERED: PACERONE 200 M200 M1 PO ×2 (09:07)
--- NOTE | 2019-11-14 11:34 | NUR ---
RECEIVED PT'S CARE AROUND 0745; PT. ON CHAIR; ALERT; DURING AM ASSESSMENT AOX4; AM MEDICATIONS GIVEN; NO C/O PAIN; DURING PRIME TIME PER DIRECTOR CUSTOM PT. REFUSED HH 11/12/2019; PER LOOM FIXER HELPER SUPPLIER DEVELOPMENT MANAGER PT. WILL RE-ASSESS SITUATION AT HOME AND DECIDED IF NEEDS HH; NO HH AT D/C; DURING ASSESSMENT AND AFTER CONFIRMING D/C WITHOUT HH; PT. ASKED ABOUT HH ROLE; EDUCATED ABOUT HH ROLE & OUT PT. REHAB; [facility]; RELATIVE AT THE BED SIDE AGREED WITH IT; REQUESTED HH; [facility] NOTIFIED; PER [facility] HH WILL BE ARRANGE Friday11/14/2019 ON THE OFFICE; PT. NOTIFIED; [facility]; ASSESSMENT CHARGED; FOLLOWED POC; WORKING ON D/C PAPERS;
[2019-11-14 11:38] VITALS: BP 104/48
--- NOTE | 2019-11-15 11:49 | NUR ---
I have reviewed the documentation by Desi Avitia from 11/11/19 to 11/12/19 and I concur with it. Adia Maguire
== END 2019-11-14 12:40 | disposition home health service (06) | DRG 234 ==
LOC: CATH 07:39 → ICU 12:22 → 2N 12:22 → CATH 14:05 → 2N 14:05 → CATH 16:56 → TBA 11-09 07:39 → 2N 11-09 07:39 → TBA 11-09 12:35 → ICU 11-09 14:45 → 2N 11-11 11:00
PROVIDERS: Nurse Practitioner Adult Health; Physician Assistant; Surgery Vascular Surgery; ADMIT Internal Medicine Cardiovascular Disease; ATTEND Internal Medicine Cardiovascular Disease
PROC: B2151ZZ Fluoroscopy of Left Heart using Low Osmolar Contrast (ICD-10-PCS; 2019-11-08)
PROC: 4A023N7 Measurement of Cardiac Sampling and Pressure, Left Heart, Percutaneous Approach (ICD-10-PCS; 2019-11-08)
PROC: B2111ZZ Fluoroscopy of Multiple Coronary Arteries using Low Osmolar Contrast (ICD-10-PCS; 2019-11-08)
PROC: B4101ZZ Fluoroscopy of Abdominal Aorta using Low Osmolar Contrast (ICD-10-PCS; 2019-11-08)
PROC: 02100Z9 Bypass Coronary Artery, One Artery from Left Internal Mammary, Open Approach (ICD-10-PCS; principal; 2019-11-09)
PROC: 5A1221Z Performance of Cardiac Output, Continuous (ICD-10-PCS; principal; 2019-11-09)
PROC: 021209W Bypass Coronary Artery, Three Arteries from Aorta with Autologous Venous Tissue, Open Approach (ICD-10-PCS; principal; 2019-11-09)
PROC: 06BQ4ZZ Excision of Left Saphenous Vein, Percutaneous Endoscopic Approach (ICD-10-PCS; principal; 2019-11-09)
DX: I25.119 Atherosclerotic heart disease of native coronary artery with unspecified angina pectoris (principal); R65.10 Systemic inflammatory response syndrome (SIRS) of non-infectious origin without acute organ dysfunction; I10 Essential (primary) hypertension; E78.00 Pure hypercholesterolemia, unspecified; M19.90 Unspecified osteoarthritis, unspecified site; R73.03 Prediabetes; Z82.49 Family history of ischemic heart disease and other diseases of the circulatory system; Z03.818 Encounter for observation for suspected exposure to other biological agents ruled out
CPT/HCPCS: 10078; 10081; 10797; 47000; 47001; 47002; 47297; 48888; 50249; 50409; 50456; 50498; 50668; 50953; 51301; 52131; 52259; 52287; 52314; 53327; 53358; 54118; 56455; 56524; 56525; 56526; 56527; 56528; 56531; 56534; 56668; 56719; 56760; 56898; 57093; 57116; 57167; 62110; 62950; 65020; 65047; 65090; 65120; 65135; 83006

== ENCOUNTER → 2019-12-13 | Outpatient (CLI) | payer OTHER ==
[~2019-12-13] MED LIST changes: +METOPROLOL SUCC25 M1 PO; +PACERONE 200 M200 M1 PO
== END ==
LOC: SJCVC 13:23
PROVIDERS: ATTEND Internal Medicine Cardiovascular Disease
DX: I25.10 Atherosclerotic heart disease of native coronary artery without angina pectoris (principal); R94.31 Abnormal electrocardiogram [ECG] [EKG]; E78.00 Pure hypercholesterolemia, unspecified; I10 Essential (primary) hypertension; Z95.1 Presence of aortocoronary bypass graft; Z79.899 Other long term (current) drug therapy; Z87.891 Personal history of nicotine dependence

== ENCOUNTER → 2020-03-13 | Outpatient (CLI) | payer OTHER | LOC: SJCVCIMAG 02-14 07:52 | PROVIDERS: ATTEND Internal Medicine Cardiovascular Disease | DX: I35.1 Nonrheumatic aortic (valve) insufficiency (principal); I25.10 Atherosclerotic heart disease of native coronary artery without angina pectoris; E78.5 Hyperlipidemia, unspecified; Z78.0 Asymptomatic menopausal state; Z95.1 Presence of aortocoronary bypass graft; Z79.899 Other long term (current) drug therapy; Z87.891 Personal history of nicotine dependence ==

== ENCOUNTER → 2021-03-01 | Outpatient (CLI) | payer OTHER | LOC: SJCVCIMAG 08:58 | PROVIDERS: ATTEND Internal Medicine | DX: R94.31 Abnormal electrocardiogram [ECG] [EKG] (principal); I35.8 Other nonrheumatic aortic valve disorders; I35.1 Nonrheumatic aortic (valve) insufficiency; R06.00 Dyspnea, unspecified; R00.1 Bradycardia, unspecified; I25.10 Atherosclerotic heart disease of native coronary artery without angina pectoris; E78.5 Hyperlipidemia, unspecified; I10 Essential (primary) hypertension; I65.23 Occlusion and stenosis of bilateral carotid arteries; K44.9 Diaphragmatic hernia without obstruction or gangrene; Z95.1 Presence of aortocoronary bypass graft; Z87.891 Personal history of nicotine dependence; Z79.82 Long term (current) use of aspirin; Z79.899 Other long term (current) drug therapy; Z72.89 Other problems related to lifestyle ==